=== PATIENT | female | born 1990 | race American Indian/Alaskan Native ===

== ENCOUNTER 2017-08-06 02:37 | Emergency (ER) | payer SELFPAY ==
[2017-08-06 02:51] VITALS: BP 128/78
[2017-08-06 03:52] LABS: HCG Qualitative,Urine Negative (Negative)
[2017-08-06] MEDS ORDERED: TYLENOL PO ONE (04:02)
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
== END 2017-08-06 05:00 | disposition home or self-care (01) ==
LOC: ED 02:37
DX: S09.8XXA Other specified injuries of head, initial encounter (principal); S70.12XA Contusion of left thigh, initial encounter; S80.212A Abrasion, left knee, initial encounter; Y04.8XXA Assault by other bodily force, initial encounter; Y93.89 Activity, other specified; Y99.8 Other external cause status; Y92.29 Other specified public building as the place of occurrence of the external cause
CPT/HCPCS: 70450; 81025